=== PATIENT | male | born 1940 | race Hispanic/Latino ===

== ENCOUNTER 2023-08-12 05:37 | Day surgery (SDC) | payer OTHER ==
[2023-08-08 10:23] LABS: BASOPHILS # (AUTO) 0.02 K/uL (0.00-0.20); BASOPHILS % (AUTO) 0.3 % (0.0-5.0); EOSINOPHILS % (AUTO) 3.1 % (0.0-8.0); HEMATOCRIT 39.2 % (42-54); IMMATURE GRANULOCYTE ABSOLUTE 0.02 K/uL (0-1); LYMPHOCYTES # (AUTO) 1.2 K/uL (1.0-4.8); LYMPHOCYTES % (AUTO) 18.1 % (21.0-51.0); MEAN CORPUSCULAR HEMOGLOBIN 29.2 pg (27.0-33.0); MEAN CORPUSCULAR HGB CONC 33.2 g/dL (32.0-36.0); MEAN CORPUSCULAR VOLUME 88.1 fL (79-99); MONOCYTES # (AUTO) 0.4 K/uL (0.1-1.0); MONOCYTES % (AUTO) 6.8 % (3.0-13.0); NEUTROPHILS # (AUTO) 4.5 K/uL (1.8-7.7); NEUTROPHILS % (AUTO) 71.4 % (40.0-77.0); PLATELET COUNT (AUTO) 238 K/uL (130-400); RED BLOOD CELL COUNT(AUTO) 4.45 MIL/uL (4.50-6.20); RED CELL DISTRIBUTION WIDTH 12.6 % (11.0-15.5); WHITE BLOOD COUNT (AUTO) 6.4 K/uL (4.8-10.8)
[2023-08-08 10:28] VITALS: BP 134/62; PULSE 78; RESP 18
[2023-08-12] VITALS (11 sets, daily range): BP systolic 106–144; BP diastolic 57–77; PULSE 61–72; RESP 14–20
[~2023-08-12] VITALS: Ht 170.2 cm; Wt 91.8 kg
[~2023-08-12 05:37] MED LIST: AMLO-257 PO; ATOR40TA69 PO; FLUT16H NASAL; FLUT1BLS8 IH
[2023-08-12] MEDS ORDERED: LACTATED RINGERS 1000ML 1,000 ML IV ONE (06:24)
[2023-08-12] MEDS: CEFAZOLIN SODIUM 2 GM VIAL ONE ×2 (06:27→07:05)
[2023-08-12] MEDS ORDERED: LIDOCAINE HCL 400MG/20ML VIAL ONE (06:43)
[2023-08-12] MEDS ORDERED: ACETAMINOPHEN 1,000 MG/100 ML VIAL IV ONE (06:43)
[2023-08-12] MEDS ORDERED: PROPOFOL 10 MG/ML 20ML VIAL IV ONE ×2 (06:45→07:19)
[2023-08-12] MEDS ORDERED: FENTANYL CITRATE PF 50 MCG/1 ML 2ML VIAL ONE (06:46)
[2023-08-12] MEDS ORDERED: MIDAZOLAM HCL 1 MG/ML 2ML VIAL ONE (06:46)
[2023-08-12] MEDS ORDERED: ACET-2079 PO (07:16)
[2023-08-12] MEDS ORDERED: ONDANSETRON 4MG INJ ONE (07:23)
[2023-08-12] MEDS ORDERED: DEXAMETHASONE SOD PHOSPHATE 10MG/ML 1ML VIAL ONE (07:23)
== END 2023-08-12 09:00 | disposition home or self-care (01) ==
LOC: DAH 05:37
PROVIDERS: ATTEND Student in an Organized Health Care Education/Training Program
DX: R22.32 Localized swelling, mass and lump, left upper limb (principal); L72.0 Epidermal cyst; I10 Essential (primary) hypertension; E66.01 Morbid (severe) obesity due to excess calories; J44.9 Chronic obstructive pulmonary disease, unspecified; E78.5 Hyperlipidemia, unspecified; Z79.899 Other long term (current) drug therapy; Z79.01 Long term (current) use of anticoagulants; Z98.49 Cataract extraction status, unspecified eye; Z87.891 Personal history of nicotine dependence; Z68.31 Body mass index [BMI] 31.0-31.9, adult
CPT/HCPCS: 85025; 36415 ×2; 93005; 26160; 64450; 86140; 88304; 76942; A4663; J7120; J3010; J3490; J1100; J2704 ×2; J2405; J0690; A6223; A4649; A4930; A4215; A4223; A4222; A4221; A5120; J2250